=== PATIENT | male | born 1965 | race Two or more races ===

== ENCOUNTER 2024-08-12 15:58 | Outpatient (CLI) | payer BC, OTHER ==
[~2024-08-12] VITALS: Ht 160 cm; Wt 79.4 kg
[2024-08-12 16:14] LABS: TOTAL HEMOGLOBIN 13.6 G/dl (13.5-17.5)
[2024-08-12 16:44] VITALS: PULSE 75; RESP 14; O2SAT 97
[2024-08-12 16:55] VITALS: PULSE 81; RESP 15
[2024-08-12] MEDS: albuterol 2.5 MG/3 ML nebule NEB ONE (17:27)
== END 2024-08-12 23:59 | disposition home or self-care (01) ==
LOC: RT 15:58
PROVIDERS: ATTEND Internal Medicine Pulmonary Disease
DX: J45.998 Other asthma (principal)
CPT/HCPCS: 85018; 94060; 94727; 94729; 94760